=== PATIENT | male | born 1950 | race Caucasian/White ===

== ENCOUNTER 2022-12-29 16:01 | Emergency (ER) | payer OTHER, BC ==
[~2022-12-29] VITALS: Ht 180.3 cm; Wt 86.2 kg
[2022-12-29 16:08] VITALS: BP_SYST 145
[2022-12-29] MEDS ORDERED: KETOROLAC TROMETHAMINE 30 MG VIAL IM ONE (16:30)
--- NOTE | 2022-12-29 17:45 | NUR ---
Radiology bedside for analysis.
--- NOTE | 2022-12-29 17:54 | NUR ---
ER at bedside examining patient.
[2022-12-29] MEDS ORDERED: ONDANSETRON 4 MG ODT TAB PO ONE (18:15)
[2022-12-29] MEDS ORDERED: MORPHINE 4 MG INJ. 4 MG/ML VIAL IM ONE (18:15)
[2022-12-29] MEDS ORDERED: methocarbamoL 500 MG TABLET PO ONE (18:45)
[2022-12-29] MEDS ORDERED: LIDOCAINE PATCH 5% 1 EA TP SCH (18:45)
[2022-12-29] MEDS ORDERED: ACETAMINOPHEN 500 MG TABLET PO ONE (18:45)
[2022-12-29] MEDS ORDERED: IBUP-1969 PO (18:48)
[2022-12-29] MEDS ORDERED: METH-634 PO (18:48)
[2022-12-29] MEDS ORDERED: PERC10 PO (18:48)
[2022-12-29] MEDS ORDERED: LIDO1ADH22 TP (18:48)
--- NOTE | 2022-12-29 18:50 | NUR ---
IM medication given for pain relief. pt lorie. valery.
[2022-12-29 19:40] VITALS: BP_SYST 145
--- NOTE | 2022-12-29 19:40 | NUR ---
Patient given written and verbal discharge instructions and verbalizes understanding. ER MD discussed with patient the results and treatment provided. Patient in stable condition. ID arm band removed. IV catheter removed intact and dressing applied, no active bleeding. Rx of percocet, robaxin and lidoderm given. Patient educated on pain management and to follow up with PMD. Opportunity for questions provided and answered. Medication side effect fact sheet provided.
== END 2022-12-29 19:40 | disposition home or self-care (01) ==
LOC: SED 16:01
DX: S39.012A Strain of muscle, fascia and tendon of lower back, initial encounter (principal); M51.36 Other intervertebral disc degeneration, lumbar region; M48.00 Spinal stenosis, site unspecified; Z79.899 Other long term (current) drug therapy; X58.XXXA Exposure to other specified factors, initial encounter; Y93.89 Activity, other specified; Y92.89 Other specified places as the place of occurrence of the external cause; Y99.8 Other external cause status
CPT/HCPCS: 99285; 72131; 76376; 96372; Q0162; J1885; J2270